=== PATIENT | female | born 1960 | race Two or more races ===

== ENCOUNTER 2019-04-09 07:47 | Emergency (ER) | payer BC ==
[2019-04-09 08:04] VITALS: BP 128/79
--- NOTE | 2019-04-09 10:38 | UC ---
Lower Extremity/Ankle HPI - HPI Summary HPI Summary: 58-year-old female presents with complaints of several months of intermittent lower extremity pain. States she will occasionally get the pain in both legs however the left leg tends to be worse than the right. Describes pain as a "throbbing, aching" pain on the entire lower leg although more noticeable in the anterior aspect. Nonradiating. Denies any aggravating factors. Pain improves with acetaminophen. Reports yesterday he noticed an area of swelling to the anterior left lower leg. Denies fever, chills, chest pain, shortness of breath, calf pain, edema, numbness, or tingling. - History of Current Complaint Chief Complaint: UCLowerExtremity Stated Complaint: LEG PAIN Time Seen by Provider: 04/09/19 10:11 Hx Obtained From: Patient Pain Intensity: 8 - Allergies/Home Medications Allergies/Adverse Reactions: Allergies Allergy/AdvReac Type Severity Reaction Status Date / Time bee venom protein (honey bee) Allergy Anaphylatic Verified 04/09/19 08:00 Shock insect venom Allergy Anaphylatic Verified 04/09/19 08:00 Shock shrimp Allergy Anaphylatic Verified 04/09/19 08:00 Shock environmental Allergy Wheezing Uncoded 04/09/19 08:00 wasps Allergy Anaphylatic Uncoded 04/09/19 08:00 Shock PMH/Surg Hx/FS Hx/Imm Hx Endocrine History: Thyroid Disease Respiratory History: Asthma - Surgical History Surgical History: Yes Surgery Procedure, Year, and Place: eye surgery as a child - Family History Known Family History: Positive: Non-Contributory - Social History Occupation: Employed Full-time Lives: Alone Alcohol Use: None Substance Use Type: None Smoking Status (MU): Never Smoked Tobacco Review of Systems All Other Systems Reviewed And Are Negative: Yes Constitutional: Negative: Fever, Chills Skin: Negative: Rash, Bruising Respiratory: Negative: Shortness Of Breath Cardiovascular: Negative: Chest Pain Gastrointestinal: Positive: Negative Genitourinary: Positive: Negative Motor: Negative: Weakness Neurovascular: Negative: Decreased Sensation Musculoskeletal: Positive: Other: - See HPI Neurological: Positive: Negative Is Patient Immunocompromised?: No Physical Exam - Summary Physical Exam Summary: GENERAL APPEARANCE: Well developed, well nourished, alert and cooperative, and appears to be in no acute distress. CARDIAC: Normal S1 and S2. No S3, S4 or murmurs. Rhythm is regular. There is no peripheral edema, cyanosis or pallor. Extremities are warm and well perfused. Capillary refill is less than 2 seconds. Peripheral pulses intact. LUNGS: Clear to auscultation without rales, rhonchi, wheezing or diminished breath sounds. ABDOMEN: Positive bowel sounds. Soft, nondistended, nontender. No guarding or rebound. No masses or hepatosplenomegally. MUSKULOSKELETAL: ROM intact to all extremities. No joint erythema or tenderness. Normal muscular development. Normal gait. EXTREMITIES: 3 cm x 3 cm raised, circumscribed, soft, nontender subcutaneous lesion without erythema, ecchymosis, induration, or fluctuance to the proximal, anterior, left lower leg. Calf supple and nontender. No edema. No varicosies. Circulation and sensation intact. SKIN: Skin normal color, texture and turgor. Triage Information Reviewed: Yes Vital Signs: Initial Vital Signs Temp 97.8 F 04/09/19 07:54 Pulse 73 04/09/19 07:54 Resp 18 04/09/19 07:54 BP 128/79 04/09/19 07:54 Pulse Ox 97 04/09/19 07:54 Vital Signs Reviewed: Yes Lower Extremity Course/Dx - Course Course Of Treatment: 58-year-old female presents with complaints of several months of intermittent lower extremity pain. States she will occasionally get the pain in both legs however the left leg tends to be worse than the right. Describes pain as a "throbbing, aching" pain on the entire lower leg although more noticeable in the anterior aspect. Nonradiating. Denies any aggravating factors. Pain improves with acetaminophen. Reports yesterday he noticed an area of swelling to the anterior left lower leg. Denies fever, chills, chest pain, shortness of breath, calf pain, edema, numbness, or tingling. Afebrile. Vital signs stable. Patient's exam was notable for a 3 cm x 3 cm raised, circumscribed, soft, nontender subcutaneous lesion without erythema, ecchymosis, induration, or fluctuance to the proximal, anterior, left lower leg. Calf supple and nontender. No edema. No varicosies. Circulation and sensation intact. Discussed with the patient that based on her history and exam I have a low suspicion for and urgent/emergent condition such as a DVT as being the cause of her symptoms. I did offer to obtain a soft tissue ultrasound to evaluate the subcutaneous lesion to the anterior aspect of her left lower leg the patient declines at this time and states that she would prefer to follow up with her primary care at this time. I am recommending conservative treatment including [id number] analgesics. She is to follow-up with her primary care provider within 7 days for further evaluation. Anticipatory guidance and warning symptoms requiring immediate evaluation were reviewed with the patient. Verbalizes understanding and agrees with plan of care. - Differential Dx/Diagnosis Differential Diagnosis/HQI/PQRI: Cellulitis, Contusion, Fracture (Closed), Infection, Phlebitis, Sprain, Other - Hematoma, lipoma, cyst Provider Diagnosis: Pain of left lower leg Discharge ED - Sign-Out/Discharge Documenting (check all that apply): Patient Departure All imaging exams completed and their final reports reviewed: No Studies - Discharge Plan Condition: Stable Disposition: HOME Patient Education Materials: Leg Pain (ED) Referrals: Sheila Franklin MD [Primary Care Provider] - 7 Days (Follow up with your primary care provider within 7 days for further evaluation.) Additional Instructions: Based on your history and exam I have a very low suspicion that your leg pain is related to an urgent or emergent condition although I cannot fully rule out all causes at this time. Based on our conversation we will defer any radiological studies at this time and have you follow-up with your primary care provider within 7 days for further evaluation. Continue to use acetaminophen (Tylenol) according to directions as needed for pain. Seek immediate medical attention in the emergency room if you develop fever greater than 100.5 F, have severe or persistent leg pain that is not managed with the pain medication, swelling of the leg, redness of the leg, chest pain, shortness of breath, or any worsening of symptoms. - Billing Disposition and Condition Condition: STABLE Disposition: Home
== END 2019-04-09 10:41 | disposition home or self-care (01) ==
LOC: UCEAST 07:47
DX: M79.662 Pain in left lower leg (principal); J45.909 Unspecified asthma, uncomplicated; Z91.030 Bee allergy status; Z91.013 Allergy to seafood; Z91.09 Other allergy status, other than to drugs and biological substances
CPT/HCPCS: 99211; G0463